=== PATIENT | male | born 1965 | race Caucasian/White ===

== ENCOUNTER 2022-02-18 03:40 | Emergency (ER) | payer SELFPAY ==
[2022-02-18 03:46] VITALS: BP 186/96; PULSE 79; RESP 18; TEMP 36.7; O2SAT 99; BMI 40.6
--- NOTE | 2022-02-18 03:50 | USR_ITS ---
PROCEDURE INFORMATION: Exam: US Abdomen, Limited; Right Upper Quadrant Exam date and time: 02/18/2022 4:04 AM Age: 57 years old Clinical indication: Abdominal pain; Acute; Additional info: Abd pain TECHNIQUE: Imaging protocol: US abdomen. Real time ultrasound with image documentation. Limited exam focused on the right upper quadrant. COMPARISON: No relevant prior studies available. FINDINGS: Liver: Slight increased echogenicity of the liver may indicate fatty infiltration. The liver appears somewhat enlarged, with right lobe length of 22.7 cm. No definite/significant focal hepatic abnormality on the provided images. Gallbladder: Several images show a 10-12 mm echogenic density in the region of the gallbladder neck, probably with some acoustic shadowing. I suspect this represents a gallstone, although it is not well visualized/evaluated at this time. The gallbladder appears somewhat distended, transverse diameter up to about 5 cm. No gallbladder wall thickening or pericholecystic fluid. Common bile duct: No biliary dilation, common duct measures 3.7 mm. Pancreas: Visible pancreas appears essentially unremarkable. Much of the pancreas appears obscured by bowel gas. Right kidney: Images of the right kidney show no hydronephrosis. Couple of subtle rounded slightly hypoechoic areas in the right kidney measure up to 4 cm in diameter. Renal masses are not excluded, I think these likely represent lobular areas involving the renal contour. Eventual comparison with any available prior exams will be helpful. Nonemergent follow-up CT could also be helpful, as clinically directed. US/US gall bladder 75048 IMPRESSION: 1. Suspected cholelithiasis, see additional details/discussion above. 2. No biliary tree dilation. 3. No hydronephrosis of the right kidney. Other equivocal findings in the right kidney, see above. 4. Other findings discussed above.
--- NOTE | 2022-02-18 03:53 | ED_ITS ---
HPI - Abdominal Pain General: Chief Complaint: Abdominal Pain Stated Complaint: Upper ABD Pain\ N\V Time Seen by Provider: 02/18/22 03:43 Source: patient Mode of arrival: ambulatory Limitations: no limitations History of Present Illness: 57-year-old male states he has been having some intermittent abdominal pains especially right upper quadrant over the last 6 months. He states that he woke up this morning at 1 AM with severe pain in the right upper quadrant that sharp in nature. States the pain is a 9 out of 10 he had 2 episodes of vomiting. He denies any improving factors. He states that it is worse with palpation. No fevers. Associated Symptoms: Reports nausea and vomiting; Denies chills, diarrhea, dysuria and fever(s) Review of Systems Const: Denies: fever(s), chills, body aches or change in appetite Eyes: Denies: blurry vision or eye discomfort ENMT: Denies: throat pain or dental pain Card: Denies: chest pain Resp: Denies: dyspnea GI: Reports: abdominal pain, nausea and vomiting; Denies: diarrhea : Denies: dysuria Musc: Denies: neck pain or back pain Skin/Breast: Denies: rash Neuro: Denies: headache(s) Psych: Denies: depression Igor/Lymph: Denies: easy bruising All/Imm: Denies: urticaria PFS ED PFSH: Medical History (Updated 02/18/22 @ 05:22 by Sloane Bedoya MD) Hypertension Social History Smoking and tobacco status: never smoked Physical Exam Const: COMMON NORMALS: no acute distress, patient oriented x3 and healthy appearing HENMT: COMMON NORMALS: normocephalic and atraumatic HEAD & SCALP: normocephalic and atraumatic Eye: COMMON NORMALS: Equal, round and reactive pupils present and EOMs intact bilaterally PUPIL: Yes Equal, round and reactive pupils present Neck/C-Spine: COMMON NORMALS: full ROM and supple Chest: COMMONS NORMALS: normal inspection of the chest and normal palpation of entire chest wall Resp: COMMON NORMALS: normal respiratory effort, No retractions, No use of accessory muscles and clear to auscultation bilaterally AUSCULTATION: clear to auscultation bilaterally Cardio: COMMON NORMALS: regular rate, regular rhythm and No murmurs present (Cardio) RATE: regular rate RHYTHM: regular rhythm GI: COMMON NORMALS: Normal to inspection, nondistended, normoactive bowel sounds present, Soft to palpation and no masses PALPATION: Yes Soft to palpation and Yes Tenderness to palpation present (GI) Details: RUQ Extremity: COMMON NORMALS: normal to inspection and full ROM Neuro: COMMON NORMALS: patient oriented x3, moves all extremities and no focal motor deficits Psych: COMMON NORMALS: mental status grossly normal, Normal thought process present and cooperative THOUGHT PROCESS: Normal thought process present Skin: COMMON NORMALS: no rashes or lesions noted and no wounds GENERAL SKIN EXAM: no rashes or lesions noted Course Vital Signs: Vital signs: Vital Signs Temperature 98.0 F 02/18/22 03:46 Pulse Rate 79 02/18/22 03:46 Respiratory Rate 20 H 02/18/22 03:59 Blood Pressure 186/96 02/18/22 03:46 Pulse Oximetry 99 02/18/22 03:46 MDM - Abdominal Pain Medical Decision Making Here with right upper quadrant abdominal pain that is consistent with biliary colic he does have some point tenderness over that area pain is improved after pain meds white count blood works all normal ultrasound did show likely gallstone little distended gallbladder no signs of cholecystitis we will get him surgery follow-up prescribe him Kate and Audra inform if he has any worsening pain he is return to ER immediately he understands and agrees to plan. Lab Data : 02/18/22 03:55 02/18/22 03:55 Labs/Radiology: Radiology Impressions Gallbladder Ultrasound 02/18/22 03:50 IMPRESSION: 1. Suspected cholelithiasis, see additional details/discussion above. 2. No biliary tree dilation. 3. No hydronephrosis of the right kidney. Other equivocal findings in the right kidney, see above. 4. Other findings discussed above. Laboratory Results WBC 6.6 10^3/uL (4.0-10.0) 02/18/22 03:55 RBC 5.37 10^6/uL (4.1-5.3) H 02/18/22 03:55 Hgb 15.7 g/dL (11.7-16.6) 02/18/22 03:55 Hct 47.5 % (42.0-52.0) 02/18/22 03:55 MCV 88.5 fl (80-94) 02/18/22 03:55 MCH 29.2 pg (28.0-34.0) 02/18/22 03:55 MCHC 33.1 g/dL (30.0-36.0) 02/18/22 03:55 RDW 14.1 % (12.1-15.1) 02/18/22 03:55 Plt Count 288 10^3/cmm (130-400) 02/18/22 03:55 MPV 10.0 fL (7.4-10.4) 02/18/22 03:55 Neut % (Auto) 70.4 % 02/18/22 03:55 Lymph % (Auto) 16.7 % 02/18/22 03:55 Bath % (Auto) 10.9 % 02/18/22 03:55 Eos % (Auto) 1.4 % 02/18/22 03:55 Baso % (Auto) 0.3 % 02/18/22 03:55 Neut # (Auto) 4.63 10^3/uL (1.8-7.7) 02/18/22 03:55 Lymph # (Auto) 1.1 10^3/uL (0.8-4.8) 02/18/22 03:55 Bath # (Auto) 0.7 10^3/uL (0.2-0.9) 02/18/22 03:55 Eos # (Auto) 0.1 10^3/uL (0.0-0.8) 02/18/22 03:55 Baso # (Auto) 0.0 10^3/uL (0.0-0.1) 02/18/22 03:55 Nucleated RBC % (auto) 0 % 02/18/22 03:55 Nucleated RBCs # 0.0 /100WBC 02/18/22 03:55 Sodium 138 mmol/L (136-145) 02/18/22 03:55 Potassium 3.7 mmol/L (3.5-5.1) 02/18/22 03:55 Chloride 105 mmol/L (98-107) 02/18/22 03:55 Carbon Dioxide 21 mmol/L (22-29) L 02/18/22 03:55 Anion Gap 15.7 (5-19) 02/18/22 03:55 BUN 12 mg/dL (6-20) 02/18/22 03:55 Creatinine 1.0 mg/dL (0.7-1.2) 02/18/22 03:55 GFR Calculation 77.6 mL/min (90-130) L 02/18/22 03:55 Glucose 210 mg/dL (65-115) H 02/18/22 03:55 Calculated Osmolality 292 mOsm/kg (285-295) 02/18/22 03:55 Calcium 9.2 mg/dL (8.5-10.5) 02/18/22 03:55 Total Bilirubin 0.2 mg/dL (0.15-1.2) 02/18/22 03:55 AST 20 U/L (0-40) 02/18/22 03:55 ALT 23 U/L (0-41) 02/18/22 03:55 Alkaline Phosphatase 84 IU/L (40-130) 02/18/22 03:55 Total Protein 7.2 g/dL (6.6-8.7) 02/18/22 03:55 Albumin 4.3 g/dL (3.5-5.2) 02/18/22 03:55 Globulin 2.9 g/dL (1.3-4.6) 02/18/22 03:55 Lipase 17 U/L (13-60) 02/18/22 03:55 EKG Data EKG 1: I personally reviewed and interpreted this EKG as follows: EKG interpretation date: 02/18/22 EKG interpretation time: 04:40 Interpretation: nsr hr [address] or t wave abnormalities qrs 84 qtc 403 Discharge Plan Discharge Patient Disposition: Home Clinical Impression: Cholelithiases, Biliary colic Prescriptions: New hydrocodone-acetaminophen 5-325 mg tablet 1 tab PO Q6H PRN (Reason: pain) Qty: 14 0RF ondansetron 4 mg tablet,disintegrating 4 mg PO Q6H PRN (Reason: nausea and vomiting) Qty: 14 0RF Discharge Orders: Discharge ED (Routine); Ordered 02/18/22 Ordered By: Sloane Bedoya Referrals: Vick Pendleton MD [Physician] - 1-3 days Discharge Diet: Advance as tolerated Discharge Activity: Resume usual activity Patient Instructions: Abdominal Pain (ED), Opioid Safety Coding Level of Care Code ED Biometrics Technician for Chg Fwd Exam Comprehensive
--- NOTE | 2022-02-18 03:55 | ECG_ITS ---
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 Measurements Intervals [place] Rate: 77 P: -5 FL: 175 QRS: -1 QRSD: 84 T: 30 QT: 372 QTc: 421 Interpretive Statements SINUS RHYTHM No previous ECG available for comparison Electronically Signed On 02-19-2022 10:47:43 CDT by Eduard Archer M.D. [email or web address]
[2022-02-18] MEDS: sodium chloride 0.9% 1,000 ML 999 ML IV (03:57)
[2022-02-18] MEDS: ondansetron 2 mg/ML SDV 2 mL 4 MG IVP (03:58)
[2022-02-18 03:59] VITALS: RESP 20
[2022-02-18] MEDS: morphine 4 mg/mL SDV 1 mL IVP (03:59)
[2022-02-18 04:19] LABS: Basophils % 0.3 %; Eosinophils # 0.1 10^3/uL (0.0-0.8); Eosinophils % 1.4 %; Hematocrit 47.5 % (42.0-52.0); Hemoglobin 15.7 g/dL (11.7-16.6); Lymphocytes # 1.1 10^3/uL (0.8-4.8); Lymphocytes % 16.7 %; Mean Corpuscular HGB Conc 33.1 g/dL (30.0-36.0); Mean Corpuscular Hemoglobin 29.2 pg (28.0-34.0); Mean Corpuscular Volume 88.5 fl (80-94); Monocytes # 0.7 10^3/uL (0.2-0.9); Monocytes % 10.9 %; Neutrophils # 4.63 10^3/uL (1.8-7.7); Neutrophils % 70.4 %; Nucleated Red Blood Cells % 0 %; Platelet Count 288 10^3/cmm (130-400); Red Blood Count 5.37 10^6/uL (4.1-5.3); Red Cell Distribution Width 14.1 % (12.1-15.1); White Blood Count 6.6 10^3/uL (4.0-10.0)
[2022-02-18 04:41] LABS: Alanine Aminotransferase 23 U/L (0-41); Albumin Level 4.3 g/dL (3.5-5.2); Alkaline Phosphatase 84 IU/L (40-130); Anion Gap 15.7 (5-19); Aspartate Amino Transferase 20 U/L (0-40); Blood Urea Nitrogen 12 mg/dL (6-20); Calcium 9.2 mg/dL (8.5-10.5); Carbon Dioxide 21 mmol/L (22-29); Chloride 105 mmol/L (98-107); Creatinine Clr Calc Pharmacy 119.2257; Globulin 2.9 g/dL (1.3-4.6); Glomerular Filtration Rate 77.6 mL/min (90-130); Glucose 210 mg/dL (65-115); Lipase 17 U/L (13-60); Osmolality Calculated 292 mOsm/kg (285-295); Potassium 3.7 mmol/L (3.5-5.1); Sodium 138 mmol/L (136-145); Total Bilirubin 0.2 mg/dL (0.15-1.2); Total Protein 7.2 g/dL (6.6-8.7)
[2022-02-18 05:28] VITALS: RESP 18; O2SAT 98
[2022-02-18] MEDS: HYDROmorphone 1 mg/mL INJ 1 mL IVP (05:28)
[2022-02-18 06:04] VITALS: BP 149/97; PULSE 79; RESP 20; TEMP 36.8; O2SAT 94
--- NOTE | 2022-02-18 10:42 | DCPLANNER ---
Addendum entered by Mar Cortez 03/11/22 07:32: Patient had a follow up appointment scheduled for 02.26.22 with general surgery - patient did not attend appointment. Addendum entered by Mar Cortez 02/19/22 07:04: Patient has a follow up appointment scheduled for Saturday, February 26, 2022 at 1:[address] Pendleton at General Surgery. Clinic will call patient with appointment information. Original Note: manager quality had message to schedule a follow up appointment for patient with general surgery. manager quality sent patients information to general surgery front staff thru workload. Patients information will be printed and reviewed. Clinic will call patient with appointment information.
== END 2022-02-18 06:09 | disposition home or self-care (01) ==
PROVIDERS: Emergency Provider Emergency Medicine
DX: K80.20 Calculus of gallbladder without cholecystitis without obstruction (principal); K80.50 Calculus of bile duct without cholangitis or cholecystitis without obstruction
CPT/HCPCS: 76705; 80053; 83690; 85025; 93005; 96361; 96374; 96375; 99284; J1170; J2270; J2405; J7030